=== PATIENT | male | born 1975 | race Caucasian/White ===

== ENCOUNTER 2023-11-30 21:13 | Emergency (ER) | payer BC, SELFPAY ==
[2023-11-30 21:15] VITALS: BP 166/107
--- NOTE | 2023-11-30 21:51 | ED.GENMED ---
History of Present Illness
General
Chief Complaint: Male Genito-Urinary Symptoms
Source: patient
Exam Limitations: none
Time Seen by Provider: 11/30/23 21:43
Travel History
Have you had any contact with someone who has COVID-19?: No
Do you have any symptoms of coronavirus? Fever > 100 degrees, chills, cough, shortness of breath, sore throat, loss of taste or smell, muscle aches, or headache?: No
History of Present Illness
History of Present Illness:
This is a 48 year old male that comes in with c/o urinary retention. States that he has not been able to urinate since about 1pm. States that he gets the urge to go and he goes in the [place] but nothing comes out. States that know it is started to get
painful since he can't go. Denies any fever, chills, chest pain, SOB, nausea, vomiting, diarrhea, headache, dizziness, urinary burning.
Past History
Past History
ED Past Medical History: None; Negative Asthma, HTN, Hypercholesterolemia or NIDDM
ED Past Surgical History: Orthopedic (Left shoulder surgery, ) and Other (Left thumb graft)
Social History
Tobacco: Non-smoker
Alcohol: Occasional
Personal:
Living: with family
Review of Systems
Review of Systems
All Other Systems: ROS reviewed and negative except as documented in HPI and ROS
Constitutional: Reports no symptoms; Denies fever or chills
EENT: Reports no symptoms
Respiratory: Reports no symptoms
Cardiac: Reports no symptoms
ABD/GI: Reports abdominal pain (Just over the bladder); Denies nausea, vomiting or diarrhea
: Reports difficulty voiding
Musculoskeletal: Reports no symptoms
Skin: Reports no symptoms
Neurological: Reports no symptoms; Denies dizzy or headache
Psychiatric: Reports no symptoms
Phy Exam
General Physical Exam
General Presentation: no apparent distress
General age: appears stated age
General Skin: warm and dry
General Habitus: normal
General Mental: alert
General Hydration: appears well hydrated
ENT Exam
ENT Exam: TM's normal, pharynx normal and neck supple
Eye Exam
Eye Exam: EOMI
Cardiovascular Exam
Cardiovascular Exam: regular rate/rhythm, no edema, no murmur and normal peripheral pulses
Pulmonary Exam
Pulmonary Exam: lungs clear, no respiratory distress, no rales, chest non tender, no crackles, no rhonchi, no wheezing and no cough
Gastrointestinal Exam
Gastrointestinal Exam: normal bowel sounds, soft, no pulsatile mass, non distended and tender (Over the bladder with bladder 2 finger widths below the naval)
Musculoskeletal Exam
Musculoskeletal Exam: full ROM and no edema
Skin Exam
Skin Exam: normal color, warm/dry, no rash and no petechia
Psychiatric Exam
Psychiatric Exam: normal mood/affect
Course
Orders/Labs/Results
Orders:
Orders
11/30/23 21:49
Baugh Placement- Treatment ONCE
Reason for insertion: Acute Retention
11/30/23 22:02
Urinalysis Reflex To Culture Urgent
Date Specimen was Collected: 11/30/23
Time Specimen was Collected: 21:59
Urine Microscopic Reflex Cult Urgent
Urine Culture Urgent
SARABJIT Source: U
Specimen Description:
Date Specimen was Collected: 11/30/23
Time Specimen was Collected: 21:59
11/30/23 22:41
LevoFLOXacin [Levaquin] 500 mg PO NOW STA
Abnormal Lab Results
11/30/23
22:02
Ur Occult Blood Reflex 2+ A
(Negative)
Urine RBC 11-15 A /HPF
(0-2)
Urine Bacteria (Reflex) Moderate A
(Negative)
Urine negative for infection.
Vital Signs
Initial and Last Documented VS:
Initial Vital Signs
Temp Pulse Resp BP Pulse Ox
98.1 F 106 20 166/107 99
11/30/23 21:15 11/30/23 21:15 11/30/23 21:15 11/30/23 21:15 11/30/23 21:15
Last Documented Vital Signs
Temp Pulse Resp BP Pulse Ox
98.1 F 106 20 166/107 99
11/30/23 21:15 11/30/23 21:15 11/30/23 21:15 11/30/23 21:15 11/30/23 21:15
MDM/Problems Addressed
Differential Diagnosis Includes:
UTI, Urinary retention
MDM/Problems Addressed:
This is a 48 year old male that comes in with c/o not being able to urinate. States that this started at 1pm and know he is getting uncomfortable.
Will scan bladder and place baugh catheter if retention. Will get Urine
Back into see patient. Explained that his urine is negative for infection. However, with the placement of the Catheter will give Levaquin for 3 days prophylactically. Patient to follow up the Urologist for the catheter to be removed. Return with
fever, or any other concerns.
Chronic conditions affecting care:
NA
Acute Exacerbation and/or Progression of Chronic Illness:
NA
*Pulse Oximetry
Patient hypoxic: no
*EKG
Interpreted by ED Provider?: NA
Rate: EKG- N/A
*Stable Attendant Interpretation
Rate: Stable Attendant- N/A
*Critical Care Note
Total Time (30-74mins, 75-104mins- exclusive of procedures): Not Applicable
ED Attending Note
-
Portions of this chart may have been created with voice recognition software.� Occasional wrong word or��sound alike� substitutions may have occurred due to the inherent limitations of voice recognition software.
Discharge Plan
Departure
Patient Disposition: Home (Routine Discharge)
Date of Disposition: 11/30/23
Time of Disposition: 22:48
Patient with high blood pressure during this ER visit?: Yes
Condition: Good
Covid-19: Not Applicable
Discharge Problem:
Acute urinary retention
Instructions: How to Care for Your Baugh Catheter, Male, Urinary Retention (DC), BLOOD PRESSURE
Prescriptions:
New
levofloxacin 500 mg tablet
500 mg PO DAILY 3 Days Qty: 3 0RF
No Action
dextroamphetamine-amphetamine [Adderall XR] 15 MG capsule,extended release 24hr
15 mg PO Daily
Referrals:
Rito Farr DO [Family Provider] -
Roberto Cuellar MD [Active] - Follow up in 2-3 days
Activity Restrictions/Additional Instructions:
As discussed, you have acute urinary retention. A catheter has been placed. Please call the urologist office and set up an appointment to have this removed. You have also been given a dose of antibiotic Prophylactically to prevent any infection.
Please increase your water intake to 8-8oz glasses daily. IF YOU HAVE ANY FEVER, OR YOU HAVE ANY OTHER CONCERNS PLEASE RETURN TO THE EMERGENCY ROOM.
Interventions
Interventions:
*Risk Screen - Suicide Last Done: 11/30/23 21:15
*General Assessment Last Done: 11/30/23 21:15
*Neglect/Abuse Screening Last Done: 11/30/23 21:15
ED- Fall Risk Assessment Last Done: 11/30/23 22:00
ED-Male Genitourinary Assessment Last Done: 11/30/23 22:00
Discharge Date and Time
Print Language: [place]
[2023-11-30 22:09] LABS: Urine Albumin Negative (Neg - Trace); Urine Bilirubin Negative (Negative); Urine Character Clear (Clear); Urine Color Yellow; Urine Glucose Negative (Negative); Urine Ketone Negative (Negative); Urine Leukocyte Negative (Negative); Urine Nitrite Negative (Negative); Urine Occult Blood 2+ (Negative); Urine Specific Gravity 1.015 (<1.030); Urine Urobilinogen Negative (Neg - 1+)
[2023-11-30 22:22] LABS: Urine Mucus Moderate
[2023-11-30 22:23] LABS: Urine Bacteria Moderate (Negative); Urine Sperm Seen; Urine White Cell 0-2 /HPF (0-5)
[2023-11-30] MEDS: LEVAQUIN 500 MG PO (22:52)
[2023-11-30 22:59] VITALS: BP 144/68
== END 2023-11-30 23:01 | disposition home or self-care (01) ==
LOC: EMR 21:13
PROVIDERS: Clinical Nurse Specialist Family Health; EMERGENCY PHYSICIAN Emergency Medicine; FAMILY PHYSICIAN Family Medicine
DX: R33.9 Retention of urine, unspecified (principal)
CPT/HCPCS: 99282; 51702; 81003; 81015; 87086

== ENCOUNTER 2023-12-01 03:59 | Emergency (ER) | payer BC, SELFPAY ==
[2023-12-01 04:02] VITALS: BP 150/95
--- NOTE | 2023-12-01 04:57 | ED.GENMED ---
History of Present Illness
General
Chief Complaint: Male Genito-Urinary Symptoms
Source: patient and previous hospital records (ED visit from yesterday evening)
Exam Limitations: none
Time Seen by Provider: 12/01/23 04:13
Nursing documentation reviewed up to this point in time: agreed with
Travel History
Have you had any contact with someone who has COVID-19?: No
Do you have any symptoms of coronavirus? Fever > 100 degrees, chills, cough, shortness of breath, sore throat, loss of taste or smell, muscle aches, or headache?: No
History of Present Illness
History of Present Illness:
This is a 48-year-old gentleman who presented to this ED yesterday evening with complaints of inability to void and tremendous urge to do so.
Baugh catheter inserted with initial drainage of 1000 cc. Complete relief of symptoms after Baugh catheter inserted.
He does admit to history of urinary urgency and weak stream approximately 9 years ago, evaluated by urologist at that time and offered medications for BPH, urinary retention but declined and has been asymptomatic until yesterday.
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 He denies alcohol use nor decongestant use.
He awoke just prior to arrival noting blood on his underwear and blood oozing around the catheter as well as blood-tinged urine within Baugh catheter bag. He does note that the leg bag harness/clip was causing some tugging/pulling on the catheter
and believes this needs to be placed further up on his thigh. He denies abdominal pain nor urinary urgency. He denies passing blood clots.
He has not had a fever nor chills.
Urinalysis from yesterday shows moderate bacteria, 11-15 RBCs but only 0-2 WBCs, nitrite negative, leukocyte Estrace negative. He was started on a short course of Levaquin, 4 days total.
Past History
Past History
ED Past Medical History: None and Other (Acute urinary retention November 30, 2023); Negative Asthma, HTN, Hypercholesterolemia or NIDDM
ED Past Surgical History: Orthopedic (Left shoulder surgery, ) and Other (Left thumb graft)
Social History
Tobacco: Non-smoker
Alcohol: Occasional
Personal:
Living: with family
Employment: Employed
Family History
Family History: Other (Noncontributory)
Phy Exam
Physical Exam
Physical Exam:
GENERAL: 48-year-old gentleman appears his stated age, bright and alert, pleasant, appears in no acute distress.
EYE: anicteric
NECK: Supple, nontender
ENT: oral mucosa is moist. No rhinorrhea.
CARDIAC: Regular rate and rhythm. no murmur.
LUNGS: No acute respiratory distress.
ABDOMEN: Soft, nondistended, without focal tenderness, bladder is not palpably distended, no r/g, no cvat. normoactive BS. Baugh catheter in place draining blood-tinged urine. No clots. Currently no leakage around the Baugh catheter.
NEUROLOGICAL: Alert and oriented x3, no focal neuro deficits. Gait is edouard and steady.
SKIN: Warm and dry, normal color, skin intact. No rash.
MUSCULOSKELETAL: No C/C/E. peripheral pulses are full and equal b/l. No palpable tenderness.
PSYCH: Normal and appropriate interaction.
Course
Vital Signs
Initial and Last Documented VS:
Initial Vital Signs
Temp Pulse Resp BP Pulse Ox
98.2 F 94 16 150/95 98
12/01/23 04:02 12/01/23 04:02 12/01/23 04:02 12/01/23 04:02 12/01/23 04:02
Last Documented Vital Signs
Temp Pulse Resp BP Pulse Ox
98.2 F 94 16 150/95 98
12/01/23 04:02 12/01/23 04:02 12/01/23 04:02 12/01/23 04:02 12/01/23 04:02
MDM/Problems Addressed
Differential Diagnosis Includes:
Patient returns this morning with acute hematuria and blood-tinged urine leaking around the catheter. He does admit the catheter has been pulled/tugging a bit while sleeping and I suspect this is because some focal urethral/inferior bladder
irritation.
Abdomen is soft and nontender, nothing to suggest recurrent urinary retention/blocked Baugh catheter but will plan to irrigate catheter.
Will reposition catheter StatLock further up the thigh to help prevent catherter from being pulled/tugged on.
Urine culture pending
Recommend continuing Levaquin as Rx yesterday
Follow up with urology as discussed.
Continue to stay well hydrated.
*Pulse Oximetry
Patient hypoxic: no
*Critical Care Note
Total Time (30-74mins, 75-104mins- exclusive of procedures): Not Applicable
ED Attending Note
-
Portions of this chart may have been created with voice recognition software.� Occasional wrong word or��sound alike� substitutions may have occurred due to the inherent limitations of voice recognition software.
Discharge Plan
Departure
Patient Disposition: Home (Routine Discharge)
Date of Disposition: 12/01/23
Time of Disposition: 05:06
Patient with high blood pressure during this ER visit?: No
Condition: Good
Discharge Problem:
hematuria related to baugh catheter
Instructions: How to Care for Your Baugh Catheter, Male
Prescriptions:
No Action
dextroamphetamine-amphetamine [Adderall XR] 15 MG capsule,extended release 24hr
15 mg PO Daily
levofloxacin 500 mg tablet
500 mg PO DAILY 3 Days Qty: 3 0RF
Referrals:
Roberto Cuellar MD [Active] - Follow up in 2-3 days
Interventions
Interventions:
*Risk Screen - Suicide Last Done: 12/01/23 04:02
*General Assessment Last Done: 12/01/23 04:02
*Neglect/Abuse Screening Last Done: 12/01/23 04:02
ED- Fall Risk Assessment Last Done: 12/01/23 04:02
*ED COVID-19 Vaccine History Last Done: 12/01/23 04:02
ED-Male Genitourinary Assessment Last Done: 12/01/23 04:42
Discharge Date and Time
Print Language: ITALIAN
== END 2023-12-01 05:21 | disposition home or self-care (01) ==
LOC: EMR 03:59
PROVIDERS: EMERGENCY PHYSICIAN Emergency Medicine
DX: R31.9 Hematuria, unspecified (principal); N40.1 Benign prostatic hyperplasia with lower urinary tract symptoms
CPT/HCPCS: 99282